=== PATIENT | male | born 1980 | race Asian ===

== ENCOUNTER 2021-08-06 05:38 | Emergency (ER) | payer OTHER ==
[~2021-08-06] VITALS: Ht 195.6 cm; Wt 120.2 kg
[2021-08-06 06:48] VITALS: BP 175/123; TEMP 98
== END 2021-08-06 06:53 | disposition home or self-care (01) ==
LOC: ED 05:38
DX: S90.31XA Contusion of right foot, initial encounter (principal); W20.8XXA Other cause of strike by thrown, projected or falling object, initial encounter; Y92.89 Other specified places as the place of occurrence of the external cause
CPT/HCPCS: 96372; 99283; J1885

== ENCOUNTER 2021-10-05 08:07 | Emergency (ER) | payer OTHER ==
[~2021-10-05] VITALS: Ht 195.6 cm; Wt 120.2 kg
[2021-10-05 08:14] VITALS: TEMP 97.2
[2021-10-05 10:15] VITALS: BP 168/92
== END 2021-10-05 10:27 | disposition home or self-care (01) ==
LOC: ED 08:07
PROC: 2W3CX1Z Immobilization of Right Lower Arm using Splint (ICD-10-PCS; principal; 2021-10-05)
DX: S52.291A Other fracture of shaft of right ulna, initial encounter for closed fracture (principal); W01.0XXA Fall on same level from slipping, tripping and stumbling without subsequent striking against object, initial encounter; Y92.098 Other place in other non-institutional residence as the place of occurrence of the external cause
CPT/HCPCS: 96372; 99283; J1885; J3490

== ENCOUNTER 2022-05-05 15:27 | Emergency (ER) | payer OTHER ==
[~2022-05-05] VITALS: Ht 195.6 cm; Wt 108.9 kg
[2022-05-05 15:52] VITALS: TEMP 99
[2022-05-05 16:16] LABS: PLATELET COUNT 342 K/uL (142-355)
[2022-05-05 16:24] LABS: POTASSIUM 3.6 mmol/L (3.6-5.2)
[2022-05-05 16:39] LABS: PARTIAL THROMBOPLASTIN TIME 24.8 SECONDS (24.5-33.6)
[2022-05-05 18:30] VITALS: BP 165/122
== END 2022-05-05 18:30 | disposition short-term general hospital (02) ==
LOC: ED 15:27
PROVIDERS: Emergency Medicine
DX: I21.4 Non-ST elevation (NSTEMI) myocardial infarction (principal); I10 Essential (primary) hypertension; Z11.52 Encounter for screening for COVID-19; F17.210 Nicotine dependence, cigarettes, uncomplicated
CPT/HCPCS: 80053; 80307; 81002; 83880; 84484; 85027; 85379; 85610; 85730; 87040; 87502; 87635; 93005; 96365; 96375; 96376; 99285; J1644; J1940; J2270; J2405; J3490; U0003

== ENCOUNTER 2022-06-23 23:47 | Emergency (ER) | payer OTHER ==
[~2022-06-23] VITALS: Ht 195.6 cm; Wt 113.4 kg
[2022-06-24 00:35] LABS: PLATELET COUNT 359 K/uL (142-355)
[2022-06-24 00:37] LABS: POTASSIUM 3.5 mmol/L (3.6-5.2)
[2022-06-24 01:48] VITALS: BP 165/89; TEMP 98.7
== END 2022-06-24 01:50 | disposition home or self-care (01) ==
LOC: ED 23:47
PROVIDERS: Emergency Medicine
DX: R10.33 Periumbilical pain (principal); K59.09 Other constipation
CPT/HCPCS: 36415; 80053; 82150; 83690; 85027; 96360; 96374; 96375; 99284; J2270; J2405; Q9963

== ENCOUNTER 2022-08-13 18:31 | Emergency (ER) | payer OTHER ==
[~2022-08-13] VITALS: Ht 195.6 cm; Wt 113.4 kg
[2022-08-13 18:54] LABS: PLATELET COUNT 399 K/uL (142-355)
[2022-08-13 19:03] LABS: POTASSIUM 4.4 mmol/L (3.6-5.2)
[2022-08-13 19:18] LABS: PARTIAL THROMBOPLASTIN TIME 23.4 SECONDS (24.5-33.6)
[2022-08-13 22:20] VITALS: BP 163/111; TEMP 97.3
== END 2022-08-13 22:20 | disposition short-term general hospital (02) ==
LOC: ED 18:31
PROVIDERS: Emergency Medicine
DX: I21.4 Non-ST elevation (NSTEMI) myocardial infarction (principal); I50.9 Heart failure, unspecified; F14.90 Cocaine use, unspecified, uncomplicated; I10 Essential (primary) hypertension; F17.210 Nicotine dependence, cigarettes, uncomplicated; Z11.52 Encounter for screening for COVID-19
CPT/HCPCS: 36415; 80053; 80307; 82150; 83690; 83880; 84484; 85027; 85379; 85610; 85730; 87635; 93005; 96365; 96366; 96375; 99284; J0360; J1644; J1940; J2270; J2405; J3490; Q9963; U0003

== ENCOUNTER 2023-04-30 19:29 | Emergency (ER) | payer OTHER ==
[~2023-04-30] VITALS: Ht 195.6 cm; Wt 122.5 kg
[2023-04-30 19:35] VITALS: TEMP 98.4
[2023-04-30 20:39] LABS: PLATELET COUNT 370 K/uL (142-355)
[2023-04-30 21:33] LABS: POTASSIUM 3.8 mmol/L (3.6-5.2)
[2023-04-30 23:55] VITALS: BP 160/102
== END 2023-04-30 23:55 | disposition home or self-care (01) ==
LOC: ED 19:29
PROVIDERS: Family Medicine
DX: R10.84 Generalized abdominal pain (principal); K52.9 Noninfective gastroenteritis and colitis, unspecified
CPT/HCPCS: 36415; 80053; 81002; 85027; 96374; 96375; 96376; 99284; J1200; J1885; J2270; J2405; Q9963